=== PATIENT | male | born 1950 | race Caucasian/White ===

== ENCOUNTER 2020-06-27 01:21 | Inpatient (IN) | payer MEDICARE, SELFPAY ==
[2020-06-27] VITALS (8 sets, daily range): BP systolic 132–163; BP diastolic 57–85; PULSE 65–86; RESP 20–24; TEMP 36.6–37.7; O2SAT 95–99; BMI 21.5
--- NOTE | ~2020-06-27 | CT_ITS ---
EXAMINATION: CT abdomen pelvis w con DATE: 06/27/2020 02:57 INDICATION: Abdominal pain. TECHNIQUE: Computed tomography (CT) of the abdomen and pelvis was performed with 100 mL Omnipaque 350 intravenous contrast. Automated exposure control and iterative reconstruction technique were employe d. The dose-length product was 191.75 mGy-cm. COMPARISON: None. FINDINGS: The visualized portions of the lung bases demonstrate dependent airspace opacities and grou ndglass opacities in right lower lobe, likely atelectasis. No pleural effusion. The heart size is nor mal. No pericardial effusion. There are coronary artery calcifications. The liver, gallbladder, splee n, pancreas, adrenal glands, and right kidney are normal. There is a 1.7 cm cyst in left kidney. Ther e are no dilated loops of bowel. There is a large volume of stool in the colon. The appendix measures 9 mm in diameter. There are no pathologically enlarged lymph nodes. There is no free intraperitoneal fluid. There is lumbar levoscoliosis and severe spondylosis. IMPRESSION: 1. Appendiceal diameter of 9 mm, but no inflammatory fat stranding or leukocytosis to suggest appendi citis. Reviewed, dictated and finalized at location A. IMPRESSION: 1. Appendiceal diameter of 9 mm, but no inflammatory fat stranding or leukocyto sis to suggest appendicitis.
--- NOTE | 2020-06-27 01:37 | ECG_ITS ---
Measurements Intervals [place] Rate: 72 P: 71 MN: 176 QRS: 64 QRSD: 89 T: 65 QT: 407 QTc: 448 Interpretive Statements SINUS RHYTHM POSSIBLE LEFT ATRIAL ENLARGEMENT POSSIBLE LEFT VENTRICULAR HYPERTROPHY BORDERLINE ST-T WAVE ABNORMALITY- INFERIOR LEADS BASELINE ARTIFACT- I, II, III, AVR, AVL, AVF, V1-V6 BORDERLINE ECG Electronically Signed On 06-27-2020 8:04:02 CDT by Clem Gillette D.O.
[2020-06-27] MEDS: SODIUM CHLORIDE 0.9% IV 1,000 ML 999 ML IV CONT (01:57)
[2020-06-27] MEDS: KETOROLAC 30 MG/ML VIAL (*BKC) IV PUSH (01:57)
[2020-06-27] MEDS: ONDANSETRON INJ 4 MG/2 ML VIAL IV PUSH ×4 (01:57→18:27)
[2020-06-27 02:12] LABS: Basophils Absolute Auto 0.06 K/mm3 (0.00-0.10); Basophils Percent Auto 0.7 % (0.0-1.0); Eosinophils Absolute Auto 0.18 K/mm3 (0.02-0.50); Hemoglobin 11.7 g/dL (12.4-15.3); Immature Granulocyte Absolute 0.04 K/mm3 (0.00-0.00); Immature Granulocyte Percent A 0.4 % (0.0-0.0); Lymphocytes Absolute Auto 1.44 K/mm3 (1.10-4.50); Mean Corpuscular HGB Conc 32.5 g/dL (32.0-36.0); Mean Corpuscular Hemoglobin 27.8 pg (27.0-31.0); Mean Corpuscular Volume 85.5 fL (78.0-102.0); Mean Platelet Volume 9.6 fl (8.7-11.0); Monocytes Absolute Auto 0.41 K/mm3 (0.10-0.90); Monocytes Percent Auto 4.5 % (2.0-11.0); Neutrophils Absolute Auto 6.9 K/mm3 (1.7-7.2); Neutrophils Percent Auto 76.4 % (50.0-70.0); Platelet Count Result 269 K/mm3 (150-420); Red Blood Count 4.21 M/mm3 (4.70-6.10); Red Cell Distribution Width 12.8 % (11.6-14.4)
[2020-06-27 02:33] LABS: Alanine Aminotransferase 23 U/L (16-63); Albumin Level 2.9 g/dL (3.4-5.0); Alkaline Phosphatase 85 U/L (46-116); Anion Gap 8 mmol/L (8-16); Aspartate Amino Transferase 20 U/L (15-37); Bilirubin,Total 0.3 mg/dL (0.00-1.00); Blood Urea Nitrogen 11 mg/dL (7-18); Calcium 7.8 mg/dL (8.5-10.1); Carbon Dioxide 28 mmol/L (21-32); Chloride 104 mmol/L (98-108); Estimated CRCL calculation 64 ml/min; Estimated Glomerular Filt Rate > 60; Glucose 126 mg/dL (70-99); Lipase 76 U/L (73-393); Osmolality Calculated 291 mOsm/kg (285-295); Potassium 3.4 mmol/L (3.5-5.1); Sodium 140 mmol/L (136-145); Total Protein 6.1 g/dL (6.4-8.2); Troponin I 6.7 ng/L (0.00-60.4)
[2020-06-27 02:37] LABS: Bilirubin Urine Negative (Negative); Blood Urine Negative (Negative); Color Urine Yellow (Yellow); Glucose Urine UA Negative (Negative); Ketones Urine Negative (Negative); Leukocyte Esterase Ur Negative LEU/UL (Negative); Nitrate Urine Negative (Negative); Protein Urine Negative (Negative); pH Urine 8.5 (5.0-8.0)
[2020-06-27 02:39] LABS: INR 1.1; Partial Thromboplastin Time 29.1 SEC (23.90-30.70); Prothrombin Time 11.4 Seconds (9.50-12.10)
[2020-06-27 02:44] LABS: Add Urine Microscopic? YES; Appearance Urine Cloudy (Clear)
[2020-06-27 02:45] LABS: Amphetamine Screen Urine Positive (Negative); Barbiturate Screen Urine Negative (Negative); Benzodiazepines Screen Urine Negative (Negative); Cannabinoid Screen Urine Negative (Negative); Cocaine Screen Urine Negative (Negative); Methadone Screen Urine Negative (Negative); Opiate Screen Urine Negative (Negative); Phencyclidine Screen Urine Negative (Negative)
[2020-06-27 02:47] LABS: Amorphous Sediment Urine Heavy
--- NOTE | 2020-06-27 03:59 | PC.NURSE ---
pt awake requesting a drink , explained need for npo until ct scan report obtained.
--- NOTE | 2020-06-27 04:05 | ED.NAVMDI ---
HPI - Nausea/Vomiting/Diarrhea General Chief complaint: Nausea/Vomiting/Diarrhea Stated complaint: STOMACH PAIN Source: patient Mode of arrival: ambulatory Limitations: no limitations History of Present Illness HPI Narrative: this is a 69-year-old gentleman that presents with nausea few episodes of vomiting has been having some intermittent lower abdominal pain but has chronic back pain that his main complaint is the chronic lower back pain. Patient is has a known history of methamphetamine and and narcotic abuser is chronic constipation. Currently there is no fever chills no shortness of breath no diarrhea. MD elicited complaint: nausea, vomiting and abdominal pain Onset (ago): day(s) Description of vomiting: watery Associated abdominal pain: Yes Location of pain: periumbilical Related Data Allergies Allergy/AdvReac Type Severity Reaction Status Date / Time No Known Allergies Allergy Verified 06/27/20 01:29 Review of Systems Review of Systems: All systems reviewed & are unremarkable except as noted in HPI and below PMFSH Past Medical History Medical History Drug abuse Exam Const: General: no acute distress and alert Orientation/consciousness: patient oriented x3 HENMT: Head: normal to inspection Eyes: Pupils: Equal, round and reactive pupils present Neck: Neck: normal visual inspection, no lymphadenopathy and no meningeal signs Chest: Chest palpation & inspection: normal inspection of the chest Resp: Effort & Inspection: normal respiratory effort Auscultation: clear to auscultation bilaterally Cardio: Rate: regular rate Rhythm: regular rhythm GI: GI Palp: Yes Soft to palpation and Yes Tenderness to palpation present (GI) Back/Spine/Pelvis: Back: no CVA tenderness Other: L4 paravertebral spinal tenderness with palpation Skin: General skin exam: normal color Rashes: no rashes Neuro: General: patient oriented x3, moves all extremities and no meningeal signs Extrem: General: normal to inspection and no pedal edema Psych: Appearance: disheveled Mental Status: mental status grossly normal Course Course Emergency Course: reassessment of patient continues to have lower back pain abdominal pain has subsided there is currently no nausea or vomiting, has been complaining of back pain will give him IV Tylenol and another dose of Zofran and advised to send medicine to his pharmacy for constipation and to follow-up with his primary care physician. Vital Signs Vital signs: Vital Signs Temperature 36.6 C 06/27/20 01:21 Pulse Rate 83 06/27/20 01:21 Respiratory Rate 20 06/27/20 01:21 Blood Pressure 132/85 06/27/20 01:21 Pulse Oximetry 99 06/27/20 01:21 Temperature 36.6 C 06/27/20 03:14 Pulse Rate 86 06/27/20 03:14 Respiratory Rate 20 06/27/20 03:14 Blood Pressure 137/67 06/27/20 03:14 Pulse Oximetry 98 06/27/20 03:14 MDM - Nausea/Vomiting/Diarrhea Lab Data Result diagrams: 06/27/20 02:09 06/27/20 02:09 Labs: Lab Results 06/27/20 06/27/20 06/27/20 Range/Units 01:37 01:45 02:09 WBC 9.0 (4.8-10.8) K/mm3 RBC 4.21 L (4.70-6.10) M/mm3 Hgb 11.7 L (12.4-15.3) g/dL Hct 36.0 L (37.0-46.0) % MCV 85.5 (78.0-102.0) fL MCH 27.8 (27.0-31.0) pg MCHC 32.5 (32.0-36.0) g/dL RDW 12.8 (11.6-14.4) % Plt Count 269 (150-420) K/mm3 MPV 9.6 (8.7-11.0) fl Immature Gran % (Auto) 0.4 H (0.0-0.0) % Neut % (Auto) 76.4 H (50.0-70.0) % Lymph % (Auto) 16.0 L (18.0-42.0) % [place] % (Auto) 4.5 (2.0-11.0) % Eos % (Auto) 2.0 (1.0-6.0) % Baso % (Auto) 0.7 (0.0-1.0) % Lymph # (Auto) 1.44 (1.10-4.50) K/mm3 [place] # (Auto) 0.41 (0.10-0.90) K/mm3 Eos # (Auto) 0.18 (0.02-0.50) K/mm3 Baso # (Auto) 0.06 (0.00-0.10) K/mm3 Abs Immat Gran (auto) 0.04 H (0.00-0.00) K/mm3 Absolute Neuts (auto) 6.9 (1.7-7.2) K/mm3
--- NOTE | 2020-06-27 04:21 | PC.NURSE ---
pt back to sleep, sitting up in cot.
--- NOTE | 2020-06-27 05:11 | PC.NURSE ---
pt able to stand to get up to commode to urinate. continues to complaint about chronic back pain.
--- NOTE | 2020-06-27 05:20 | PC.NURSE ---
multiple attempts to call arleen Hernandez, messages left, no response. Pt left undisturbed to sleep. warm blankets reapplied
--- NOTE | 2020-06-27 06:11 | PC.NURSE ---
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
--- NOTE | 2020-06-27 06:19 | PC.NURSE ---
ice chips given per pt request. warm blankets reapplied. awaiting son arrival.
--- NOTE | 2020-06-27 06:28 | PC.NURSE ---
pt wretching with dry heeves after ice chips, dr fuller notified. called and notified. unable to contact son.
[2020-06-27] MEDS: MORPHINE SULFATE (*CRX) 2 MG/ML INJ IV PUSH ×2 (07:20→13:09)
[2020-06-27] MEDS: LACTATED RINGERS 1,000 ML 100 ML IV CONT ×2 (07:20→16:51)
--- NOTE | 2020-06-27 07:23 | PC.NURSE ---
update to charge nurse, Madhavi PEREZ. pt continues wretching and spitting phlegm. Report to ANA Nur
--- NOTE | 2020-06-27 07:51 | PC.NURSE ---
PT CARE IS ASSUMED AT THIS TIME. PT CURRENTLY NOT HAVING EMESIS. PT REFUSES SUBOXONE FILM, STATES IT WILL KILL HIM BECAUSE HE DID FENTANYL TODAY.
[2020-06-27] MEDS: KCL 40 MEQ/0.9% SOD CHL 1,000 ML 250 ML IV CONT ×2 (08:05→12:05)
[2020-06-27] MEDS: PROMETHAZINE HCL 25 MG/ML AMPUL IM (08:09)
--- NOTE | 2020-06-27 08:40 | ADMGEN ---
This patient, Leandro Benson, was admitted to 2nd Floor Room 206-1. Patient oriented to hospital policies and general routines including ID bracelet, bed and alarms, visiting hours, pain management, procedures, bathroom and other care routines, personal items, smoking policy, room service/diet, and visiting hours. Patient encouraged to report perceived risks to care and to ask questions if they do not understand what they are told or what they should do.
[2020-06-27] MEDS: METOCLOPRAMIDE HCL INJ 10 MG/2 ML VIAL 5 MG IV PUSH ×3 (09:40→18:14)
[2020-06-27] MEDS: PROCHLORPERAZINE EDISYLATE 10 MG/2 ML VIAL IV PUSH (10:44)
[2020-06-27] MEDS: chlordiazePOXIDE (*CRX) 25 MG CAPSULE 50 MG PO ×2 (12:14→18:13)
--- NOTE | 2020-06-27 15:12 | PM.IMHP ---
H&P: HPI History of Present Illness Date/Time: 06/27/20 15:13 this is a 69-year-old gentleman who presented to our urgent care with abdominal pain and uncontrollable nausea and vomiting. Patient has a past medical history of substance abuse. Patient did test positive for amphetamines and admits that he also does fentanyl. WBCs 9.0, hemoglobin 11.7, hematocrit 36.0, platelets 269, sodium 140, potassium 3.4, creatinine 0.86, BUN 11, glucose 126. Patient has been referred to [facility]. He will be admitted for withdrawal symptoms and treatment. Patient complains of nausea and vomiting and abdominal pain. The patient denies SOB, CP, palpitation, extremity numbness, lightheadedness, dizziness, chills, or fever. Chief Complaint: Withdrawal symptoms Review of Systems Review of Systems: Narrative: A 14 organ system Review of Systems was performed and pertinent positives included in the HPI, otherwise remaining ROS is negative. [facility] Past Medical History Medical History Drug abuse Social History Social History Smoking packs per day: 1 Smoking cigarettes per day: 20.0 Years smoked: 25 Smoking pack-years: 25.00 Smoking status: Current every day smoker Tobacco type: cigarettes Alcohol intake: never Substance use type: methamphetamine Last use: 06/26/2020 Gender identity (if verbalized by the patient): Male Spiritual care concerns: No Meds Home Medications and Allergies Home Medications Medication Instructions Recorded Confirmed Type docusate sodium [Colace] 100 mg PO BID #10 cap 06/27/20 Rx magnesium citrate 150 ml PO ONCE #296 ml 06/27/20 Rx naproxen 500 mg PO BID PRN #10 tablet 06/27/20 Rx ondansetron HCl [Zofran] 4 mg PO Q6H PRN #10 tablet 06/27/20 Rx Allergies Allergy/AdvReac Type Severity Reaction Status Date / Time No Known Allergies Allergy Verified 06/27/20 01:29 Vital Signs Vital Signs - 24 hr 06/27/20 01:21 06/27/20 03:14 06/27/20 04:28 Temperature 98 F 98 F 98 F Pulse Rate 83 86 86 Respiratory Rate 20 20 20 Blood Pressure 132/85 137/67 145/74 H Pulse Oximetry 99 98 98 06/27/20 07:27 06/27/20 08:45 06/27/20 12:00 Temperature 98 F 98.9 F 99.9 F H Pulse Rate 65 82 77 Respiratory Rate 20 20 20 Blood Pressure 163/67 H 152/81 H 143/84 H Pulse Oximetry 95 96 98 Exam Narrative: Exam Narrative: GENERAL: This is a well-nourished, well-developed patient, in no apparent distress. HEAD: normocephalic, atraumatic. EYES: PERRL. Sclera clear/white. Vision is grossly intact. EARS: External ears normal, auditory canals clear and without drainage, TMs normal without perforation. Hearing grossly intact. NOSE: External nose normal with no obvious nasal discharge, nares without redness, no rhinorrhea. THROAT: Mucous membranes moist, posterior pharynx clear. NECK: Neck supple, non-tender without lymphadenopathy, masses or thyromegaly. CARDIOVASCULAR: Regular rate and rhythm without murmurs, gallops, or rubs. RESPIRATORY: Clear to auscultation. Breath sounds equal bilaterally. No wheezes, rales, or rhonchi. GASTROINTESTINAL: Abdomen soft, non-tender, nondistended. Bowel sounds are active. No hepato-splenomegaly, or palpable masses. No guarding. SKIN: warm, intact with no suspicious lesions or rash, good texture and turgor. NEURO: awake, alert, and oriented to person, place and time. There were no obvious focal neurologic abnormalities. Steady gait EXTREMITIES: Normal range of motion. No edema. No calf tenderness. Negative Homans sign bilaterally. BACK: Nontender without deformity or crepitance. No flank tenderness. H&P: Results Labs Labs: Short CBC 06/27/20 Range/Units 02:09 WBC 9.0 (4.8-10.8) K/mm3 Hgb 11.7 L (12.4-15.3) g/dL Hct 36.0 L (37.0-46.0) % Plt Count 269 (150-420) K/mm3 [facility] 06/27/20 02:09 Sodium 140 Potassium
--- NOTE | 2020-06-27 17:00 | PC.NURSE ---
Pt. continues to have small bouts of emesis, Pt. will awaken to name and try to perform simple tasks, but very sluggish. Pt. under close monitoring, VSS at this time. Pt. has emesis bag in place and advised to use if needed.
[2020-06-27 18:25] LABS: Glucose Point of Care 126 mg/dl (65-105)
[2020-06-27] MEDS: DOCUSATE SODIUM 100 MG CAPSULE PO (20:53)
[2020-06-28] VITALS: BP 142/75; PULSE 79; RESP 20; TEMP 36.8; O2SAT 98
[2020-06-28] MEDS: METOCLOPRAMIDE HCL INJ 10 MG/2 ML VIAL 5 MG IV PUSH ×5 (00:49→23:54)
[2020-06-28] MEDS: chlordiazePOXIDE (*CRX) 25 MG CAPSULE 50 MG PO ×2 (00:49→06:08)
--- NOTE | 2020-06-28 00:49 | PC.NURSE ---
ANA Major at bedside to administer IV push Reglan.
[2020-06-28 01:03] LABS: Glucose Point of Care 122 mg/dl (65-105)
[2020-06-28] MEDS: LACTATED RINGERS 1,000 ML 100 ML IV CONT ×3 (01:46→22:35)
[2020-06-28 04:00] VITALS: BP 167/67; PULSE 66; RESP 24; TEMP 37.2; O2SAT 94
[2020-06-28 05:55] LABS: Basophils Absolute Auto 0.02 K/mm3 (0.00-0.10); Basophils Percent Auto 0.1 % (0.0-1.0); Eosinophils Absolute Auto 0.01 K/mm3 (0.02-0.50); Eosinophils Percent Auto 0.1 % (1.0-6.0); Hematocrit 38.4 % (37.0-46.0); Hemoglobin 12.9 g/dL (12.4-15.3); Immature Granulocyte Absolute 0.06 K/mm3 (0.00-0.00); Immature Granulocyte Percent A 0.4 % (0.0-0.0); Lymphocytes Absolute Auto 1.52 K/mm3 (1.10-4.50); Lymphocytes Percent Auto 9.8 % (18.0-42.0); Mean Corpuscular HGB Conc 33.6 g/dL (32.0-36.0); Mean Corpuscular Hemoglobin 27.6 pg (27.0-31.0); Mean Corpuscular Volume 82.1 fL (78.0-102.0); Mean Platelet Volume 10.1 fl (8.7-11.0); Monocytes Absolute Auto 0.93 K/mm3 (0.10-0.90); Neutrophils Percent Auto 83.6 % (50.0-70.0); Platelet Count Result 349 K/mm3 (150-420); Red Blood Count 4.68 M/mm3 (4.70-6.10); Red Cell Distribution Width 12.9 % (11.6-14.4); White Blood Count 15.5 K/mm3 (4.8-10.8)
[2020-06-28 06:05] LABS: Alanine Aminotransferase 30 U/L (16-63); Albumin Level 3.1 g/dL (3.4-5.0); Alkaline Phosphatase 88 U/L (46-116); Anion Gap 10 mmol/L (8-16); Aspartate Amino Transferase 28 U/L (15-37); Bilirubin,Total 0.6 mg/dL (0.00-1.00); Blood Urea Nitrogen 15 mg/dL (7-18); Calcium 8.2 mg/dL (8.5-10.1); Carbon Dioxide 24 mmol/L (21-32); Chloride 100 mmol/L (98-108); Estimated CRCL calculation 60 ml/min; Estimated Glomerular Filt Rate > 60; Glucose 126 mg/dL (70-99); Osmolality Calculated 280 mOsm/kg (285-295); Potassium 3.3 mmol/L (3.5-5.1); Sodium 134 mmol/L (136-145); Total Protein 6.6 g/dL (6.4-8.2)
[2020-06-28 06:21] LABS: Magnesium 1.9 mg/dL (1.8-2.4)
[2020-06-28 06:32] LABS: Glucose Point of Care 119 mg/dl (65-105)
--- NOTE | 2020-06-28 06:32 | PC.NURSE ---
ANA Lira at bedside to administer IV push Reglan
[2020-06-28 08:00] VITALS: BP 172/87; PULSE 73; RESP 22; TEMP 37.6; O2SAT 96
--- NOTE | 2020-06-28 10:45 | WPDPN ---
Progress Note: A&P Assessment and Plan (1) Constipation: Qualifiers: Constipation type: drug induced constipation Qualified Code(s): K59.03 - Drug induced constipation Code(s): K59.00 - Constipation, unspecified Status: Acute Assessment and Plan: Continue stool softeners Will give laxative later patient may develop diarrhea due to withdrawal symptoms Imaging indicates constipation (2) Back pain at L4-L5 level: Code(s): M54.5 - Low back pain Status: Acute Assessment and Plan: Will avoid narcotics Treat with Tylenol (3) Drug abuse: Code(s): F19.10 - Other psychoactive substance abuse, uncomplicated Status: Acute Assessment and Plan: Refer to the [facility] Continue buprenorphine, Librium, Ativan, Robaxin, Reglan, Zofran and Compazine (4) Kidney cysts: Code(s): N28.1 - Cyst of kidney, acquired Status: Acute Assessment and Plan: CT of the abdomen pelvis indicates 1.7 cm cyst to the left kidney Patient will need to follow-up with his primary care physician (5) Abnormal CT of the abdomen: Code(s): R93.5 - Abnormal findings on diagnostic imaging of other abdominal regions, including retroperitoneum Status: Acute Assessment and Plan: Appendiceal diameter of 9 mm, but no inflammatory fat stranding or leukocytosis to suggest appendicitis. patient WBC increased and contniue to have abd tenderness MRI pending Exam Narrative: Exam Narrative: GENERAL: This is a well-nourished, well-developed patient, in no apparent distress. HEAD: normocephalic, atraumatic. EYES: PERRL. Sclera clear/white. Vision is grossly intact. EARS: External ears normal, auditory canals clear and without drainage, TMs normal without perforation. Hearing grossly intact. NOSE: External nose normal with no obvious nasal discharge, nares without redness, no rhinorrhea. THROAT: Mucous membranes moist, posterior pharynx clear. NECK: Neck supple, non-tender without lymphadenopathy, masses or thyromegaly. CARDIOVASCULAR: Regular rate and rhythm without murmurs, gallops, or rubs. RESPIRATORY: Clear to auscultation. Breath sounds equal bilaterally. No wheezes, rales, or rhonchi. GASTROINTESTINAL: Abdomen soft, tender as evidenced patient grimacing with palpation especially to the right side of the abdomen, nondistended. Bowel sounds are active. No hepato-splenomegaly, or palpable masses. No guarding. SKIN: warm, intact with no suspicious lesions or rash, good texture and turgor. NEURO: Sedated EXTREMITIES: Normal range of motion. No edema. No calf tenderness. Negative Homans sign bilaterally. BACK: Nontender without deformity or crepitance. No flank tenderness. Objective Data Vital Signs Vital Signs: Vital Signs - 24 hr 06/27/20 12:00 06/27/20 15:36 06/27/20 20:00 Temperature 99.9 F H 99.8 F H 98.8 F Pulse Rate 77 83 76 Respiratory Rate 20 20 24 H Blood Pressure 143/84 H 139/57 L 136/68 Pulse Oximetry 98 97 97 06/28/20 00:00 06/28/20 04:00 Temperature 98.3 F 98.9 F Pulse Rate 79 66 Respiratory Rate 20 24 H Blood Pressure 142/75 H 167/67 H Pulse Oximetry 98 94 Intake/Output Intake/Output: Intake & Output 06/25/20 06/26/20 06/27/20 06/28/20 23:59 23:59 23:59 23:59 Intake Total 3461.667 891.667 Output Total 725 120 Balance 2736.667 771.667 Meds/Results Medications: Active Medications Generic Name Dose Route Start Last Admin Trade Name Freq PRN Reason Stop Dose Admin Buprenorphine/Naloxone 0.5 each 06/27/20 21:00 06/28/20 08:26 Buprenorphine Hcl/Naloxone Hcl (*Crx) 4 Mg/1 Mg Sl Film SUBLINGUAL 0.5 each Q12HR HAILEY Administration Chlordiazepoxide HCl 50 mg 06/28/20 09:17 Chlordiazepoxide (*Crx) 25 Mg Capsule PO Q6HR PRN Alcohol Withdrawal Dicyclomine HCl 20 mg 06/27/20 08:37 Dicyclomine Hcl 10 Mg Capsule PO Q6H PRN Abdominal discomfort Docusate Sodium 100
[2020-06-28 12:00] VITALS: BP 171/92; PULSE 74; RESP 24; TEMP 37.3; O2SAT 96
[2020-06-28 14:19] LABS: Glucose Point of Care 117 mg/dl (65-105)
--- NOTE | 2020-06-28 14:24 | PM.EVENT ---
Event Note Event Note Event Note: according to patient and guest he is allergic to Brimonidine it causes burning and redness to his eye. The medication has been dc'ed and he is not displaying redness or burning currently. nursing will call his pharm for clarification.
[2020-06-28 16:00] VITALS: BP 155/84; PULSE 81; RESP 24; TEMP 37.7; O2SAT 97
[2020-06-28 18:07] LABS: Appearance Urine Sl Cloudy (Clear); Bilirubin Urine Negative (Negative); Color Urine Yellow (Yellow); Glucose Urine UA Negative (Negative); Ketones Urine 2+ (Negative); Leukocyte Esterase Ur Trace LEU/UL (Negative); Nitrate Urine Negative (Negative); Protein Urine Negative (Negative); Urobilinogen Urine 0.2 mg/dL (0.2-1.0)
[2020-06-28 18:16] LABS: Glucose Point of Care 93 mg/dl (65-105)
[2020-06-28 18:17] LABS: Add Urine Microscopic? YES; Amorphous Sediment Urine Moderate; Bacteria Urine 1+ /hpf; Blood Urine Trace (Negative)
[2020-06-28 20:00] VITALS: BP 159/76; PULSE 79; RESP 24; TEMP 36.9; O2SAT 93
[2020-06-28] MEDS: DOCUSATE SODIUM 100 MG CAPSULE PO (20:08)
[2020-06-29] VITALS: BP 159/82; PULSE 81; RESP 24; TEMP 36.7; O2SAT 94
--- NOTE | 2020-06-29 | PC.NURSE ---
ANA Lira at bedside to administer IV push Reglan.
[2020-06-29 03:23] LABS: Glucose Point of Care 108 mg/dl (65-105)
[2020-06-29 04:00] VITALS: BP 157/75; PULSE 73; RESP 20; TEMP 36.4; O2SAT 91
[2020-06-29] MEDS: METOCLOPRAMIDE HCL INJ 10 MG/2 ML VIAL 5 MG IV PUSH ×3 (05:54→17:28)
--- NOTE | 2020-06-29 05:55 | PC.NURSE ---
ANA Lira at bedside to administer IV push Reglan
[2020-06-29 05:57] LABS: Glucose Point of Care 103 mg/dl (65-105)
[2020-06-29 06:17] LABS: Hematocrit 42.3 % (37.0-46.0); Hemoglobin 14.4 g/dL (12.4-15.3); Mean Corpuscular Hemoglobin 27.8 pg (27.0-31.0); Mean Corpuscular Volume 81.7 fL (78.0-102.0); Mean Platelet Volume 9.9 fl (8.7-11.0); Platelet Count Result 386 K/mm3 (150-420); Red Blood Count 5.18 M/mm3 (4.70-6.10); Red Cell Distribution Width 12.5 % (11.6-14.4)
[2020-06-29 06:21] LABS: White Blood Count 21.1 K/mm3 (4.8-10.8)
[2020-06-29 06:35] LABS: Alanine Aminotransferase 28 U/L (16-63); Alkaline Phosphatase 87 U/L (46-116); Anion Gap 9 mmol/L (8-16); Aspartate Amino Transferase 20 U/L (15-37); Bilirubin,Total 0.7 mg/dL (0.00-1.00); Blood Urea Nitrogen 14 mg/dL (7-18); Calcium 8.2 mg/dL (8.5-10.1); Carbon Dioxide 27 mmol/L (21-32); Chloride 95 mmol/L (98-108); Estimated CRCL calculation 67 ml/min; Estimated Glomerular Filt Rate > 60; Glucose 119 mg/dL (70-99); Osmolality Calculated 273 mOsm/kg (285-295); Potassium 3.2 mmol/L (3.5-5.1); Sodium 131 mmol/L (136-145); Total Protein 6.4 g/dL (6.4-8.2)
--- NOTE | 2020-06-29 06:35 | PC.NURSE ---
Dr. Kurtz notified of pt's WBC of 21.1. No new orders at this time.
[2020-06-29 06:39] LABS: Lactic Acid Reflex 1.4 mmol/L (0.4-2.0)
[2020-06-29 06:49] LABS: Band Neutrophils Percent 0 % (0-6); Basophils Percent Manual 0 % (0-1); Eosinophils Percent Manual 0 % (1-6); Lymphocytes Absolute Manual 1.89 K/mm3 (1.1-4.5); Lymphocytes Percent Manual 9 % (18-44); Monocytes Absolute Manual 1.26 K/mm3 (0.1-0.90); Monocytes Percent Manual 6 % (3-9); Neutrophils Absolute Manual 17.93 K/mm3 (1.3-6.7); Neutrophils Percent Manual 85 % (46-73); Platelet Estimate Adequate (Adequate); Total Cells Counted 100
[2020-06-29 07:40] VITALS: BP 167/87; PULSE 84; RESP 20; TEMP 37.1; O2SAT 94
[2020-06-29] MEDS: LACTATED RINGERS 1,000 ML 100 ML IV CONT (08:28)
[2020-06-29] MEDS: SODIUM CHLORIDE 0.9% IV 1,000 ML 100 ML IV CONT ×2 (09:47→20:20)
[2020-06-29] MEDS: KCL 20 MEQ/SW 100 ML 100 ML 50 MEQ IVPB ×2 (10:24→12:24)
--- NOTE | 2020-06-29 10:45 | WPDPN ---
Progress Note: A&P Assessment and Plan (1) Constipation: Qualifiers: Constipation type: drug induced constipation Qualified Code(s): K59.03 - Drug induced constipation <Porsche OakleyMAL - Last Filed: 06/29/20 10:49> Code(s): K59.00 - Constipation, unspecified <Porsche OakleyUSHA-C - Last Filed: 06/29/20 10:49> Status: Acute <Porsche OakleySHYANNC - Last Filed: 06/29/20 10:49> Assessment and Plan: Continue stool softeners Will give laxative later patient may develop diarrhea due to withdrawal symptoms Imaging indicates constipation <Porsche TothAlea AdinMAL - Last Filed: 06/29/20 10:49> (2) Back pain at L4-L5 level: Code(s): M54.5 - Low back pain <Porsche TothMAL Julien - Last Filed: 06/29/20 10:49> Status: Acute <Porsche OakleyMAL - Last Filed: 06/29/20 10:49> Assessment and Plan: Will avoid narcotics Treat with Tylenol <Porsche TothUSHA Julien-C - Last Filed: 06/29/20 10:49> (3) Drug abuse: Code(s): F19.10 - Other psychoactive substance abuse, uncomplicated <Porsche TothAlea AdinMAL - Last Filed: 06/29/20 10:49> Status: Acute <Porsche TothAlea AdinMAL - Last Filed: 06/29/20 10:49> Assessment and Plan: [facility] Continue buprenorphine, Librium, Ativan, Robaxin, Reglan, Zofran and Compazine <Porsche TothUSHA Julien-Sherry - Last Filed: 06/29/20 10:49> (4) Kidney cysts: Code(s): N28.1 - Cyst of kidney, acquired <Porsche TothUSHA Julien-C - Last Filed: 06/29/20 10:49> Status: Acute <Velasquezryan JaneyMAL Julien - Last Filed: 06/29/20 10:49> Assessment and Plan: CT of the abdomen pelvis indicates 1.7 cm cyst to the left kidney Patient will need to follow-up with his primary care physician <Porsche TothUSHA JulienJeanSherry - Last Filed: 06/29/20 10:49> (5) Abnormal CT of the abdomen: Code(s): R93.5 - Abnormal findings on diagnostic imaging of other abdominal regions, including retroperitoneum <USHA PelaezMedina Pena Last Filed: 06/29/20 10:49> Status: Acute <Porsche TothAlea Oakley MAL - Last Filed: 06/29/20 10:49> Assessment and Plan: Appendiceal diameter of 9 mm, but no inflammatory fat stranding or leukocytosis to suggest appendicitis. patient WBC increased and contniue to have abd tenderness MRI ordered for Tuesday if need <Velasquezryan USHA HughesMedina - Last Filed: 06/29/20 10:49> (6) UTI (urinary tract infection): Code(s): N39.0 - Urinary tract infection, site not specified <VelasquezUSHA MauricioMedina - Last Filed: 06/29/20 10:49> Status: Acute <Porsche Joseph Adin MAL Pena Last Filed: 06/29/20 10:49> Assessment and Plan: UA with WBCs leukocytes and bacteria Patient will receive supplements if needed WBCs 21.1 Start Rocephin UA culture pending <VelasquezOFELIA MauricioBeto Last Filed: 06/29/20 10:49> Review of Systems Review of Systems: ROS unobtainable: Yes unobtainable due to medical condition <OFELIA PelaezBeto - Last Filed: 06/29/20 10:49> Exam Narrative: Exam Narrative: GENERAL: Patient is sedated in no apparent distress. HEAD: normocephalic, atraumatic. EYES: PERRL. Sclera clear/white. Vision is grossly intact. EARS: External ears normal, auditory canals clear and without drainage, TMs normal without perforation. Hearing grossly intact. NOSE: External nose normal with no obvious nasal discharge, nares without redness, no rhinorrhea. THROAT: Mucous membranes moist, posterior pharynx clear. NECK: Neck supple, non-tender without lymphadenopathy, masses or thyromegaly. CARDIOVASCULAR: Regular rate and rhythm without murmurs, gallops, or rubs. RESPIRATORY: Clear to auscultation. Breath sounds equal bilaterally. No wheezes, rales, or rhonchi. GASTROINTESTINAL: Abdomen soft, tender as evidenced patient grimacing with palpation especially to the r
--- NOTE | 2020-06-29 10:45 | P.PN_ITS ---
Progress Note: A&P Assessment and Plan (1) Constipation: Qualifiers: Constipation type: drug induced constipation Qualified Code(s): K59.03 - Drug induced constipation <Porsche TothMAL Julien - Last File d: 06/29/20 10:49> Code(s): K59.00 - Constipation, unspecified <Porsche OakleyMAL - Last Filed: 06/29/20 10:49> Status: Acute <Porsche OakleyMAL - Last Filed: 06/29/20 10:49> Assessment and Plan: * Continue stool softeners * Will give laxative later patient may develop diarrhea due to withdrawal symptoms * Imaging indicates constipation <Porsche JaneyMAL Julien - Last Filed: 06/29/20 10:49> (2) Back pain at L4-L5 level: Code(s): M54.5 - Low back pain <Porsche JaneyMAL Julien - Last Filed: 06/29/20 10:49> Status: Acute <Porsche TothAlea AdinMAL - Last Filed: 06/29/20 10:49> Assessment and Plan: * Will avoid narcotics * Treat with Tylenol <MAL Pelaez - Last Filed: 06/29/20 10:49> (3) Drug abuse: Code(s): F19.10 - Other psychoactive substance abuse, uncomplicated <Porsche TothMAL Julien - Last Filed: 06/29/20 10:49> Status: Acute <Velasquezryan JaneyMAL Julien - Last Filed: 06/29/20 10:49> Assessment and Plan: * [facility] to [facility] * Continue buprenorphine, Librium, Ativan, Robaxin, Reglan, Zofran and Compazine <MAL Pelaez - Last Filed: 06/29/20 10:49> (4) Kidney cysts: Code(s): N28.1 - Cyst of kidney, acquired <Porsche JaneyAML Julien - Last Filed: 06/29/20 10:49> Status: Acute <Porsche JaneyMAL Julien - Last Filed: 06/29/20 10:49> Assessment and Plan: * CT of the abdomen pelvis indicates 1.7 cm cyst to the left kidney * Patient will need to follow-up with his primary care physician <MAL Pelaez - Last Filed: 06/29/20 10:49> (5) Abnormal CT of the abdomen: Code(s): R93.5 - Abnormal findings on diagnostic imaging of other abdominal regions, including retroperitoneum <Porsche TothAlea Oakley MAL Pena Last Filed: 06/29/20 10:49> Status: Acute <Porsche Oakley MAL - Last Filed: 06/29/20 10:49> Assessment and Plan: * Appendiceal diameter of 9 mm, but no inflammatory fat stranding or leukocytosis to suggest appendicitis. * patient WBC increased and contniue to have abd tenderness * MRI ordered for Tuesday if need <Porshce TothAlea Oakley MAL - Last Filed: 06/29/20 10:49> (6) UTI (urinary tract infection): Code(s): N39.0 - Urinary tract infection, site not specified <Porsche Oakley MAL - Last Filed: 06/29/20 10:49> Status: Acute <Porsche Oakley MAL Pena Last Filed: 06/29/20 10:49> Assessment and Plan: * UA with WBCs leukocytes and bacteria * Patient will receive supplements if needed WBCs 21.1 * Start Rocephin * UA culture pending <Porsche Oakley MAL Pena Last Filed: 06/29/20 10:49> Review of Systems Review of Systems: ROS unobtainable: Yes unobtainable due to medical condition <Porsche Oakley MAL - Last Filed: 06/29/20 10:49> Exam Narrative: Exam Narrative: GENERAL: Patient is sedated in no apparent distress. HEAD: normocephalic, atraumatic. EYES: PERRL. Sclera clear/white. Vision is grossly intact. EARS: External ears normal, auditory canals clear and without drainage, TMs normal without perforation. Hearing grossly intact. NOSE: External nose normal with no obvious nasal discharge, nares without redness, no rhinorrhea. 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
[2020-06-29] MEDS: NICOTINE (*PBKC) 21 MG PATCH 1 PATCH TRANSDERM (11:42)
[2020-06-29] MEDS: ENOXAPARIN 40 MG/0.4 ML SYRINGE SUB-Q (11:44)
[2020-06-29 11:48] LABS: Glucose Point of Care 123 mg/dl (65-105)
[2020-06-29 12:00] VITALS: BP 146/74; PULSE 86; RESP 18; TEMP 37.2; O2SAT 93
[2020-06-29 16:00] VITALS: BP 158/86; PULSE 84; RESP 20; TEMP 37.3; O2SAT 94
[2020-06-29 19:20] LABS: Glucose Point of Care 129 mg/dl (65-105)
[2020-06-29 20:00] VITALS: BP 145/77; PULSE 77; RESP 24; TEMP 36.5; O2SAT 97
[2020-06-29] MEDS: DOCUSATE SODIUM 100 MG CAPSULE PO (20:47)
[2020-06-30] VITALS (7 sets, daily range): BP systolic 132–170; BP diastolic 60–84; PULSE 64–78; RESP 16–24; TEMP 36.4–37.5; O2SAT 92–99
--- NOTE | 2020-06-30 | PC.NURSE ---
ANA Hernandez at bedside to administer IV push David
[2020-06-30 00:59] LABS: Glucose Point of Care 94 mg/dl (65-105)
[2020-06-30] MEDS: METOCLOPRAMIDE HCL INJ 10 MG/2 ML VIAL 5 MG IV PUSH ×4 (01:04→17:15)
[2020-06-30 05:19] LABS: Hematocrit 39.3 % (37.0-46.0); Hemoglobin 13.3 g/dL (12.4-15.3); Mean Corpuscular HGB Conc 33.8 g/dL (32.0-36.0); Mean Corpuscular Hemoglobin 27.8 pg (27.0-31.0); Platelet Count Result 349 K/mm3 (150-420); Red Blood Count 4.79 M/mm3 (4.70-6.10); Red Cell Distribution Width 12.6 % (11.6-14.4)
[2020-06-30 05:33] LABS: Glucose Point of Care 119 mg/dl (65-105)
[2020-06-30 05:37] LABS: Alanine Aminotransferase 15 U/L (16-63); Albumin Level 2.6 g/dL (3.4-5.0); Alkaline Phosphatase 82 U/L (46-116); Anion Gap 6 mmol/L (8-16); Aspartate Amino Transferase 14 U/L (15-37); Bilirubin,Total 0.6 mg/dL (0.00-1.00); Blood Urea Nitrogen 12 mg/dL (7-18); Calcium 7.9 mg/dL (8.5-10.1); Carbon Dioxide 27 mmol/L (21-32); Chloride 99 mmol/L (98-108); Estimated CRCL calculation 63 ml/min; Estimated Glomerular Filt Rate > 60; Glucose 119 mg/dL (70-99); Magnesium 1.9 mg/dL (1.8-2.4); Osmolality Calculated 274 mOsm/kg (285-295); Potassium 3.3 mmol/L (3.5-5.1); Sodium 132 mmol/L (136-145); Total Protein 6.1 g/dL (6.4-8.2)
--- NOTE | 2020-06-30 06:00 | PC.NURSE ---
ANA Lira at bedside to administer IV push Reglan.
[2020-06-30] MEDS: SODIUM CHLORIDE 0.9% IV 1,000 ML 100 ML IV CONT ×2 (06:15→17:14)
[2020-06-30] MEDS: ENOXAPARIN 40 MG/0.4 ML SYRINGE SUB-Q (09:20)
[2020-06-30] MEDS: DOCUSATE SODIUM 100 MG CAPSULE PO ×2 (09:21→20:41)
[2020-06-30] MEDS: methocarbamoL 750 MG TABLET PO (09:21)
[2020-06-30] MEDS: NICOTINE (*PBKC) 21 MG PATCH 1 PATCH TRANSDERM (11:26)
[2020-06-30 13:10] LABS: Glucose Point of Care 115 mg/dl (65-105)
--- NOTE | 2020-06-30 15:15 | WPDPN ---
Progress Note: A&P Assessment and Plan (1) Constipation: Qualifiers: Constipation type: drug induced constipation Qualified Code(s): K59.03 - Drug induced constipation Code(s): K59.00 - Constipation, unspecified Status: Acute Assessment and Plan: Continue stool softeners Will give laxative later patient may develop diarrhea due to withdrawal symptoms Imaging indicates constipation (2) Back pain at L4-L5 level: Code(s): M54.5 - Low back pain Status: Acute Assessment and Plan: Will avoid narcotics Treat with Tylenol (3) Drug abuse: Code(s): F19.10 - Other psychoactive substance abuse, uncomplicated Status: Acute Assessment and Plan: Refer to the [facility] Continue buprenorphine, Librium, Ativan, Robaxin, Reglan, Zofran and Compazine (4) Kidney cysts: Code(s): N28.1 - Cyst of kidney, acquired Status: Acute Assessment and Plan: CT of the abdomen pelvis indicates 1.7 cm cyst to the left kidney Patient will need to follow-up with his primary care physician (5) Abnormal CT of the abdomen: Code(s): R93.5 - Abnormal findings on diagnostic imaging of other abdominal regions, including retroperitoneum Status: Acute Assessment and Plan: Appendiceal diameter of 9 mm, but no inflammatory fat stranding or leukocytosis to suggest appendicitis. patient WBC increased and contniue to have abd tenderness (6) UTI (urinary tract infection): Code(s): N39.0 - Urinary tract infection, site not specified Status: Acute Assessment and Plan: UA with WBCs leukocytes and bacteria Patient will receive supplements if needed WBCs 21.1 Start Rocephin WBCs 9.0>15.5>21.1>17.0 Review of Systems Review of Systems: Narrative: A 14 organ system Review of Systems was performed and pertinent positives included in the HPI, otherwise remaining ROS is negative. Exam Narrative: Exam Narrative: GENERAL: Patient is sedated in no apparent distress. HEAD: normocephalic, atraumatic. EYES: PERRL. Sclera clear/white. Vision is grossly intact. EARS: External ears normal, auditory canals clear and without drainage, TMs normal without perforation. Hearing grossly intact. NOSE: External nose normal with no obvious nasal discharge, nares without redness, no rhinorrhea. THROAT: Mucous membranes moist, posterior pharynx clear. NECK: Neck supple, non-tender without lymphadenopathy, masses or thyromegaly. CARDIOVASCULAR: Regular rate and rhythm without murmurs, gallops, or rubs. RESPIRATORY: Clear to auscultation. Breath sounds equal bilaterally. No wheezes, rales, or rhonchi. GASTROINTESTINAL: Abdomen soft, tender as evidenced patient grimacing with palpation especially to the right side of the abdomen, nondistended. Bowel sounds are active. No hepato-splenomegaly, or palpable masses. No guarding. SKIN: warm, intact with no suspicious lesions or rash, good texture and turgor. NEURO: Sedated EXTREMITIES: Normal range of motion. No edema. No calf tenderness. Negative Homans sign bilaterally. BACK: Nontender without deformity or crepitance. No flank tenderness. Objective Data Vital Signs Vital Signs: Vital Signs - 24 hr 06/29/20 16:00 06/29/20 20:00 06/30/20 00:00 Temperature 99.1 F 97.7 F 98.6 F Pulse Rate 84 77 68 Respiratory Rate 20 24 H 20 Blood Pressure 158/86 H 145/77 H 157/80 H Pulse Oximetry 94 97 99 06/30/20 04:00 06/30/20 08:00 06/30/20 12:00 Temperature 97.6 F 97.6 F 99.2 F Pulse Rate 66 70 78 Respiratory Rate 24 H 18 16 Blood Pressure 156/67 H 140/60 132/82 Pulse Oximetry 97 97 98 Intake/Output Intake/Output: Intake & Output 06/27/20 06/28/20 06/29/20 06/30/20 23:59 23:59 23:59 23:59 Intake Total 3461.667 2891.667 3490 1712.667 Output Total 781 654 3525 575 Balance 2736.667 2371.667 1315 1137.667 Meds/Results Medications: Active Medications Generic Name Dose Route Start Last
[2020-06-30 18:41] LABS: Glucose Point of Care 110 mg/dl (65-105)
[2020-06-30] MEDS: PROCHLORPERAZINE EDISYLATE 10 MG/2 ML VIAL IV PUSH (18:45)
[2020-06-30] MEDS: DICYCLOMINE HCL 10 MG CAPSULE 20 MG PO (21:20)
[2020-06-30 23:20] LABS: Glucose Point of Care 107 mg/dl (65-105)
[2020-07-01] MEDS: METOCLOPRAMIDE HCL INJ 10 MG/2 ML VIAL 5 MG IV PUSH ×3 (00:46→13:03)
[2020-07-01] MEDS: SODIUM CHLORIDE 0.9% IV 1,000 ML 100 ML IV CONT (03:10)
[2020-07-01 05:50] LABS: Hematocrit 38.1 % (37.0-46.0); Hemoglobin 12.7 g/dL (12.4-15.3); Mean Corpuscular HGB Conc 33.3 g/dL (32.0-36.0); Mean Corpuscular Hemoglobin 27.8 pg (27.0-31.0); Mean Corpuscular Volume 83.4 fL (78.0-102.0); Mean Platelet Volume 10.5 fl (8.7-11.0); Platelet Count Result 331 K/mm3 (150-420); Red Blood Count 4.57 M/mm3 (4.70-6.10); Red Cell Distribution Width 12.5 % (11.6-14.4); White Blood Count 14.5 K/mm3 (4.8-10.8)
[2020-07-01 06:01] LABS: Glucose Point of Care 115 mg/dl (65-105)
[2020-07-01 06:05] LABS: Alanine Aminotransferase 18 U/L (16-63); Albumin Level 2.6 g/dL (3.4-5.0); Alkaline Phosphatase 77 U/L (46-116); Anion Gap 7 mmol/L (8-16); Aspartate Amino Transferase 14 U/L (15-37); Bilirubin,Total 0.4 mg/dL (0.00-1.00); Blood Urea Nitrogen 9 mg/dL (7-18); Calcium 7.9 mg/dL (8.5-10.1); Carbon Dioxide 26 mmol/L (21-32); Chloride 100 mmol/L (98-108); Estimated CRCL calculation 65 ml/min; Estimated Glomerular Filt Rate > 60; Glucose 98 mg/dL (70-99); Osmolality Calculated 274 mOsm/kg (285-295); Potassium 3.2 mmol/L (3.5-5.1); Sodium 133 mmol/L (136-145)
[2020-07-01 06:06] VITALS: BP 129/73; PULSE 71; RESP 20; TEMP 36.1; O2SAT 96
[2020-07-01 08:00] VITALS: BP 167/86; PULSE 66; RESP 16; TEMP 37.2; O2SAT 96
[2020-07-01] MEDS: NICOTINE (*PBKC) 21 MG PATCH 1 PATCH TRANSDERM (08:43)
[2020-07-01] MEDS: ENOXAPARIN 40 MG/0.4 ML SYRINGE SUB-Q (08:45)
[2020-07-01] MEDS: DOCUSATE SODIUM 100 MG CAPSULE PO (08:47)
--- NOTE | 2020-07-01 14:33 | PM.DS ---
DS: Admitting Diagnosis Admitting Diagnosis Admitting Diagnosis: Nausea and Vomiting, Constipation DS: Discharge Diagnosis Discharge Diagnosis (1) Constipation: Qualifiers: Constipation type: drug induced constipation Qualified Code(s): K59.03 - Drug induced constipation Code(s): K59.00 - Constipation, unspecified Status: Acute Assessment and Plan: Continue stool softeners Will give laxative later patient may develop diarrhea due to withdrawal symptoms Imaging indicates constipation 07/01/2020 Pt has had a BM during his stay (2) Back pain at L4-L5 level: Code(s): M54.5 - Low back pain Status: Acute Assessment and Plan: Will avoid narcotics Treat with Tylenol 07/01/2020 Tylenol seemed to work for this Pt he only had minimal pain this AM (3) Drug abuse: Code(s): F19.10 - Other psychoactive substance abuse, uncomplicated Status: Acute Assessment and Plan: [facility] Continue buprenorphine, Librium, Ativan, Robaxin, Reglan, Zofran and Compazine 07/01/2020 Pt was referred to addition services (4) Kidney cysts: Code(s): N28.1 - Cyst of kidney, acquired Status: Acute Assessment and Plan: CT of the abdomen pelvis indicates 1.7 cm cyst to the left kidney Patient will need to follow-up with his primary care physician 07/01/2020 No urinary issues, f/u with PCP and right of way supervisor per PCP (5) Abnormal CT of the abdomen: Code(s): R93.5 - Abnormal findings on diagnostic imaging of other abdominal regions, including retroperitoneum Status: Acute Assessment and Plan: Appendiceal diameter of 9 mm, but no inflammatory fat stranding or leukocytosis to suggest appendicitis. patient WBC increased and contniue to have abd tenderness 07/01/2020 WBC trending down now 14.5, afebrile, no chills, Pt was vomiting and dry heaving previously which is likely cause for his abdominal pain (6) UTI (urinary tract infection): Code(s): N39.0 - Urinary tract infection, site not specified Status: Acute Assessment and Plan: UA with WBCs leukocytes and bacteria Patient will receive supplements if needed WBCs 21.1 Start Rocephin WBCs 9.0>15.5>21.1>17.0 07/01/2020 WBC this AM 14.5 down trending, in collaboration with Dr. Echavarria will treat for prostatitis with Bactrim for 1 month. DS: Summary Hospital Course Hospital Course: Pt has not had N/V and was able to have BMs, no withdrawal symptoms reported Time Spent with Patient Time attestation: Total time spent providing and/or coordinating discharge services:< 30 Minutes Exam Const: General: cooperative, comfortable, no acute distress, alert, awake and Physically active Nutritional Appearance: average body habitus HENMT: Head: normal to inspection and normocephalic Ears: hearing grossly normal bilaterally Eyes: General: appearance normal, both eyes and all related structures Neck: Neck: normal visual inspection and no JVD Resp: Effort & Inspection: normal respiratory effort Auscultation: clear to auscultation bilaterally Cardio: Jugular venous distension: no JVD Rate: regular rate Heart sounds: S1 normal heart sound present and S2 normal heart sound present GI: GI Palp: Yes Soft to palpation and Yes Tenderness to palpation present (GI) (just under ribs ) Auscultation: normal bowel sounds Skin: General skin exam: pallor Neuro: General: oriented to person, oriented to place and oriented to time Cranial nerves: Yes CN's II-XII intact bilaterally (grossly intact) Cognition (Neuro): normal cognition Speech: normal speech Extrem: General: no pedal edema Psych: Mental Status: mental status grossly normal Affect: normal affect Attitude: cooperative DS: Data Data Completed and Pending Labs on day of discharge: Labs from last 24 hours 07/01/20 07/01/20 07/01/20 05:57 05:11 05:11 WBC 14.5 H RBC 4.57 L Hgb 12.7 Hct 38.1 MC
--- NOTE | 2020-07-01 15:51 | PC.NURSE ---
Patient transported off of floor via wheelchair to personal vehicle. Patient discharged to home. Discharge instructions explained. Patient verbalized understanding. Personal belongings sent with patient.
--- NOTE | 2020-07-02 12:51 | PC.NURSE ---
Discharge call back completed, spoke with , states having some abdominal pain but minimal, states he wants chili but isn't sure he should have that yet, asked about medications, and reports no new meds she knew of, but having pain when pees, I informed that patient did have a UTI diagnosis and should have a script for an antibiotic, while on the phone I reviewed with hospitalist and will send script to ramesh corona for her to picker feeder for patient. No other questions offerred and no concerns regarding care while in hospital.
== END 2020-07-01 15:50 | disposition home or self-care (01) | DRG 690 ==
LOC: CHSED 07:19 → CHS2ND 07:24
PROVIDERS: Emergency Medicine; Nurse Practitioner; Admitting Provider Emergency Medicine; Emergency Provider Emergency Medicine; Visit Provider Emergency Medicine
DX: N39.0 Urinary tract infection, site not specified (principal); F19.139 Other psychoactive substance abuse with withdrawal, unspecified; K59.03 Drug induced constipation; M54.5 Low back pain; N28.1 Cyst of kidney, acquired; F17.200 Nicotine dependence, unspecified, uncomplicated
CPT/HCPCS: 36415; 74177; 80053; 80307; 81001; 82948; 83605; 83690; 83735; 84484; 85025; 85027; 85610; 85730; 87077; 87086; 87088; 93005; 96361; 96365; 96366; 96367; 96372; 96375; 96376; 97161; 97165; 97530; 99285; A9270; G0378; J0131; J0696; J0780; J1650; J1885; J2270; J2405; J2550; J2765; J3480; J7030; J7120; Q9967

== ENCOUNTER 2020-10-13 05:37 | Inpatient (IN) | payer MEDICARE, SELFPAY ==
[2020-10-13] VITALS (12 sets, daily range): BP systolic 123–169; BP diastolic 57–90; PULSE 62–86; RESP 18–24; TEMP 36.6–37.9; O2SAT 94–98; BMI 13.2
--- NOTE | ~2020-10-13 | XR_ITS ---
XR abdomen/kub 1V 10/14/2020 17:53 Indication: Ileus. Abdomen pain. Covid Procedure: KUB Comparison: No prior studies for comparison. Findings: Elevated right diaphragm. NG tube in the stomach. Nonobstructive bowel gas pattern. Moderat e lumbar spondylosis with levoscoliosis. No radiopaque renal stones. No acute osseous abnormality. 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 Impression: 1: Nonobstructive bowel gas pattern. Reviewed, dictated and finalized at location A. Impression: 1: Nonobstructive bowel gas pattern.
--- NOTE | ~2020-10-13 | XR_ITS ---
EXAMINATION: XR chest 1V portable DATE: 10/13/2020 08:08 INDICATION: COVID positive presenting with cough and vomiting. TECHNIQUE: frontal view of the chest was obtained. COMPARISON: Chest radiograph dated 03/27/2018 FINDINGS: Velocity right hemithorax with elevation of the right hemidiaphragm and rightward shift of the heart and mediastinum. Right basilar opacities most likely atelectasis although differential includes pneum onia. Left lung remains clear. No pulmonary edema pleural effusion or pneumothorax. Mild cardiomegaly . There is excreted contrast in the bilateral renal collecting systems from prior contrast enhanced C T of the abdomen and pelvis. Moderate upper lumbar levoscoliosis with severe thoracolumbar spondylosi s. IMPRESSION: 1. Volume loss the right hemithorax with elevation of the right hemidiaphragm and rightward shift of the heart and mediastinum. 2. Right basilar opacities and favor atelectasis over pneumonia. 3. Mild cardiomegaly. Reviewed, dictated and finalized at location A. IMPRESSION: 1. Volume loss the right hemithorax with elevation of the right hemidiaphragm a nd rightward shift of the heart and mediastinum. 2. Right basilar opacities and favor atelectasis over pneumonia. 3. Mild cardiomegaly.
--- NOTE | ~2020-10-13 | CT_ITS ---
EXAMINATION: CT abdomen pelvis w con DATE: 10/13/2020 08:08 INDICATION: COVID positive with nausea, vomiting and abdominal pain TECHNIQUE: Computed tomography (CT) of the abdomen and pelvis was performed with 100 mL Omnipaque-350 intravenous contrast. Automated exposure control and iterative reconstruction technique were employe d. The dose-length product was 329.59 mGy-cm. COMPARISON: None FINDINGS: Elevation of the right hemidiaphragm. Compressive atelectasis along the inferior right middle lobe. T here are peripheral groundglass and reticular opacities in the right middle and lower lobes also most likely atelectasis although differential includes pneumonia or asymmetric mild pulmonary edema. Bord nicholas heart size. Atherosclerotic coronary artery calcification with possible stenting along the rig ht coronary artery. No pericardial or pleural effusion. Liver, gallbladder, spleen, pancreas and bila teral kidneys are normal. Unchanged mild thickening of the bilateral adrenal glands. There are severa l discontinuous mildly dilated loops of small bowel with intervening relatively decompressed segments and without a discrete transition point to suggest obstruction and this could be related to either i leus or enteritis. Small amount of stool scattered throughout the colon. The appendix is not visualiz ed. No pericecal inflammatory change to suggest acute appendicitis. Distended bladder is otherwise un remarkable. No free intraperitoneal gas or fluid. No pathologically enlarged abdominal or pelvic lymp hadenopathy. There is calcified atherosclerosis of the aorta and many of the other arteries. Moderate lumbar levoscoliosis with severe thoracolumbar spondylosis. IMPRESSION: 1. A few discontinuous mildly dilated gas and fluid-filled loops of small bowel without a discrete tr ansition point to suggest obstruction and is more likely related to either an ileus or enteritis. 2. Bibasilar and peripheral predominant opacities in the right middle and lower lobes consistent with corresponding volume loss and elevation the right hemidiaphragm although could not absolutely exclud e superimposed pneumonia or mild asymmetric pulmonary edema. Reviewed, dictated and finalized at location A. IMPRESSION: 1. A few discontinuous mildly dilated gas and fluid-filled loops of small bowel without a discrete transition point to suggest obstruction and is more likely related to either an ileus or enteritis. 2. Bibasilar and peripheral predominant opacities in the right middle and lower lobes consistent with corresponding volume loss and elevation the right hemidi aphragm although could not absolutely exclude superimposed pneumonia or mild as ymmetric pulmonary edema.
--- NOTE | 2020-10-13 05:39 | ECG_ITS ---
Measurements Intervals [place] Rate: 59 P: 52 MA: 166 QRS: 54 QRSD: 84 T: 32 QT: 427 QTc: 425 Interpretive Statements SINUS BRADYCARDIA BASELINE ARTIFACT- V1-V6 BORDERLINE ECG Electronically Signed On 10-14-2020 7:12:51 CDT by Clem Gillette D.O.
--- NOTE | 2020-10-13 06:03 | ED.NAVMDI ---
HPI - Nausea/Vomiting/Diarrhea General Source: patient and family Mode of arrival: wheelchair Limitations: altered mental status and intoxication History of Present Illness HPI Narrative: 70-year-old man with a history of methamphetamine and opiate drug abuse brought to the emergency department by family slumped over in a wheelchair and complaining of vomiting. Patient is a poor historian and only states that his abdomen hurts. Family states that he has been vomiting. Family reports no cough or cold symptoms, fever, diarrhea, or injuries. MD elicited complaint: nausea, vomiting and abdominal pain Onset (ago): hour(s) (12?) Description of vomiting: food contents Associated nausea: Yes Associated abdominal pain: Yes Pain consistency: constant Severity: moderate Relieving factors: none Related Data Allergies Allergy/AdvReac Type Severity Reaction Status Date / Time No Known Allergies Allergy Verified 06/27/20 01:29 Review of Systems Review of Systems: ROS unobtainable: Yes unobtainable due to mental status PMFSH Past Medical History Medical History Drug abuse Social History Social History Smoking packs per day: 55 Smoking cigarettes per day: 1,100.0 Years smoked: 25 Smoking pack-years: 1375.00 Smoking status: Heavy tobacco smoker Tobacco type: cigarettes Second hand tobacco smoke exposure: Yes Alcohol intake: never Substance use: current Substance use type: methamphetamine Last use: 06/26/2020 Gender identity (if verbalized by the patient): Male Spiritual care concerns: No Exam Const: Other: Moderate acute distress, disheveled, slumped over in chair and in bed. HENMT: Head: normal to inspection Ears: external ears normal Mouth: Yes moist mucous membranes Throat: posterior oropharynx normal Other: Nasal drainage Eyes: Cornea: corneas normal Pupils: Equal, round and reactive pupils present EOM: EOMs intact bilaterally Resp: Effort & Inspection: normal respiratory effort and not labored Auscultation: clear to auscultation bilaterally, no rales, no rhonchi, no wheezes and diminished lung sounds on the right in the lower lung wilson Cardio: Rate: regular rate Rhythm: regular rhythm Heart sounds: no murmurs GI: GI Palp: Yes Soft to palpation, Yes Tenderness to palpation present (GI), No Guarding due to palpation present (GI), No Rigid due to palpation and No Palpable mass present Skin: General skin exam: normal color, no jaundice and no pallor Rashes: no rashes Neuro: General: patient oriented x3, moves all extremities, no focal motor deficits and CN's II-XI intact bilaterally Speech: normal speech Gait exam (Neuro): Normal gait present Extrem: General: normal to inspection and no clubbing, cyanosis or edema Psych: Appearance: grossly normal and well kempt Mental Status: mental status grossly normal Affect: normal affect Attitude: cooperative Thought content: Yes Normal thought content present Course Vital Signs Vital signs: Vital Signs Temperature 36.6 C 10/13/20 05:40 Pulse Rate 65 10/13/20 05:40 Respiratory Rate 24 H 10/13/20 05:40 Blood Pressure 169/71 H 10/13/20 05:40 Pulse Oximetry 97 10/13/20 05:40 Temperature 37.1 C 10/15/20 12:00 Pulse Rate 78 10/15/20 12:00 Respiratory Rate 16 10/15/20 12:00 Blood Pressure 140/50 L 10/15/20 12:00 Pulse Oximetry 95 10/15/20 12:00 MDM - Nausea/Vomiting/Diarrhea Differential Diagnosis Differential diagnosis: Likely gastroenteritis, drug-induced nausea and vomiting and dehydration Lab Data Result diagrams: 10/15/20 05:20 10/15/20 05:20 Labs: Lab Results 10/13/20 10/13/20 10/13/20 Range/Units 06:18 06:18 06:18 WBC 6.7 (4.8-10.8) K/mm3 RBC 4.83 (4.70-6.10) M/mm3 Hgb 13.7 (12.4-15.3) g/dL Hct 40.6 (37.0-46.0) % MCV 84.1
[2020-10-13] MEDS: ONDANSETRON INJ 4 MG/2 ML VIAL IV PUSH ×2 (06:15→09:27)
[2020-10-13] MEDS: SODIUM CHLORIDE 0.9% IV 1,000 ML 999 ML IV CONT (06:20)
[2020-10-13 06:21] LABS: Basophils Absolute Auto 0.01 K/mm3 (0.00-0.10); Basophils Percent Auto 0.1 % (0.0-1.0); Hematocrit 40.6 % (37.0-46.0); Hemoglobin 13.7 g/dL (12.4-15.3); Immature Granulocyte Absolute 0.02 K/mm3 (0.00-0.00); Immature Granulocyte Percent A 0.3 % (0.0-0.0); Lymphocytes Absolute Auto 0.89 K/mm3 (1.10-4.50); Lymphocytes Percent Auto 13.2 % (18.0-42.0); Mean Corpuscular HGB Conc 33.7 g/dL (32.0-36.0); Mean Corpuscular Hemoglobin 28.4 pg (27.0-31.0); Mean Corpuscular Volume 84.1 fL (78.0-102.0); Mean Platelet Volume 10.6 fl (8.7-11.0); Monocytes Absolute Auto 0.39 K/mm3 (0.10-0.90); Monocytes Percent Auto 5.8 % (2.0-11.0); Neutrophils Absolute Auto 5.4 K/mm3 (1.7-7.2); Neutrophils Percent Auto 80.6 % (50.0-70.0); Platelet Count Result 207 K/mm3 (150-420); Red Blood Count 4.83 M/mm3 (4.70-6.10); Red Cell Distribution Width 12.2 % (11.6-14.4); White Blood Count 6.7 K/mm3 (4.8-10.8)
[2020-10-13 06:31] LABS: Partial Thromboplastin Time 33.7 SEC (23.90-30.70)
[2020-10-13 06:35] LABS: SARS-CoV-2 Ag Positive (Negative)
[2020-10-13 06:38] LABS: Alanine Aminotransferase 22 U/L (16-63); Albumin Level 3.1 g/dL (3.4-5.0); Alkaline Phosphatase 96 U/L (46-116); Anion Gap 10 mmol/L (8-16); Aspartate Amino Transferase 32 U/L (15-37); Bilirubin,Total 0.4 mg/dL (0.00-1.00); Blood Urea Nitrogen 12 mg/dL (7-18); CRP 7.4 mg/dL (0.0-0.9); Calcium 8.5 mg/dL (8.5-10.1); Carbon Dioxide 28 mmol/L (21-32); Chloride 97 mmol/L (98-108); Estimated CRCL calculation 48 ml/min; Estimated Glomerular Filt Rate > 60; Glucose 137 mg/dL (70-99); Lactic Acid Reflex 1.7 mmol/L (0.4-2.0); Lipase 143 U/L (73-393); Osmolality Calculated 281 mOsm/kg (285-295); Potassium 3.8 mmol/L (3.5-5.1); Sodium 135 mmol/L (136-145); Total Protein 7.3 g/dL (6.4-8.2); Troponin I 7.3 ng/L (0.00-60.4)
[2020-10-13] MEDS: PROMETHAZINE HCL 25 MG/ML AMPUL IM (06:50)
[2020-10-13] MEDS: SODIUM CHLORIDE 0.9% IV 1,000 ML 200 ML IV CONT (07:30)
--- NOTE | 2020-10-13 08:15 | PC.NURSE ---
URINE SAMPLE SENT TO LAB.
[2020-10-13 08:21] LABS: Add Urine Microscopic? YES; Appearance Urine Clear (Clear); Bilirubin Urine Negative (Negative); Blood Urine Trace-Intact (Negative); Color Urine Yellow (Yellow); Glucose Urine UA Negative (Negative); Ketones Urine 2+ (Negative); Leukocyte Esterase Ur Negative LEU/UL (Negative); Nitrate Urine Negative (Negative); Protein Urine Negative (Negative); pH Urine 7.5 (5.0-8.0)
[2020-10-13 08:26] LABS: Squamous Epithelial Cell Urine Rare /hpf (Few); WBC Urine None seen /hpf (0-3)
[2020-10-13 08:27] LABS: Amphetamine Screen Urine Positive (Negative); Bacteria Urine Trace /hpf; Barbiturate Screen Urine Negative (Negative); Benzodiazepines Screen Urine Negative (Negative); Cannabinoid Screen Urine Negative (Negative); Cocaine Screen Urine Negative (Negative); Methadone Screen Urine Negative (Negative); Opiate Screen Urine Negative (Negative); Phencyclidine Screen Urine Negative (Negative)
[2020-10-13 09:29] LABS: Base Excess ABG 0.1 mmol/L (0-2); Oxygen Content ABG 17.5 %vol (16.0-22.0); Oxygen Saturation ABG 92.7 % (95-97); Oxyhemoglobin 92.1 % (94-100); PCO2 ABG 28.3 mmHg (35-45); Total Hemoglobin 13.5 g/dL (12.0-18.0); pH ABG 7.51 (7.35-7.45)
[2020-10-13 09:30] LABS: Device ROOM AIR; Modified Allen's Test Pass; Site Drawn RIGHT RADIAL
[2020-10-13] MEDS: DEXAMETHASONE SOD PHOS INJ 4 MG/ML VIAL 8 MG (12:00)
[2020-10-13] MEDS: SODIUM CHLORIDE 0.9% IV 1,000 ML 100 ML IV CONT ×2 (12:13→21:59)
[2020-10-13] MEDS: ENOXAPARIN 40 MG/0.4 ML SYRINGE 30 MG SUB-Q (12:13)
[2020-10-13] MEDS: DEXAMETHASONE SOD PHOS INJ 4 MG/ML VIAL 6 MG IV PUSH (12:13)
[2020-10-13] MEDS: REMDESIVIR 200 MG/NS 250 ML 200 MG/250 ML BAG 250 MG IVPB (12:16)
[2020-10-13] MEDS: NICOTINE (*PBKC) 21 MG PATCH 1 PATCH TRANSDERM (12:28)
[2020-10-13] MEDS: LORazepam INJ (*CRX) 2 MG/ML VIAL 0.5 MG IV PUSH ×2 (12:30→20:49)
--- NOTE | 2020-10-13 12:54 | PM.IMHP ---
H&P: HPI History of Present Illness Date/Time: 10/13/20 12:54 this is a 70-year-old male that presented to emergency department with complaints of abdominal pain and nausea vomiting. Patient has a past medical history of substance abuse. Patient is a poor historian all information obtained from medical records. Patient is lethargic but arousable. according to family members with the patient unsure of how long. Patient also tested positive for Covid, vital signs blood pressure 152/62, pulse ox 95% on room air, respiratory rate 18, pulse 86, temperature 99.4, WBC 6.7, hemoglobin 13.7, hematocrit 40.6, platelets 207, sodium 135, potassium 3.8, BUN 12, creatinine 0.88, glucose 137, lactic acid 1.7, liver function test within normal limit, CRP 1.4, urine positive for ketones, blood, urobilinogen RBCs, positive for amphetamines and positive for Covid CT of the abdomen indicates ileus or enteritis, ABG pH 7.51 CO2 20.3 O2 66, bicarb 22. Possible mild pulmonary edema EKG sinus rhythm with a heart rate of 72 Chief Complaint: abd pain n/v Review of Systems Review of Systems: ROS unobtainable: Yes unobtainable due to mental status PMFSH Past Medical History Medical History Drug abuse Social History Social History Smoking packs per day: 55 Smoking cigarettes per day: 1,100.0 Years smoked: 25 Smoking pack-years: 1375.00 Smoking status: Heavy tobacco smoker Tobacco type: cigarettes Second hand tobacco smoke exposure: Yes Alcohol intake: never Substance use: current Substance use type: methamphetamine Last use: 06/26/2020 Gender identity (if verbalized by the patient): Male Spiritual care concerns: No Meds Home Medications and Allergies Home Medications Medication Instructions Recorded Confirmed Type Unable to Obtain Home Medications 10/13/20 10/13/20 History Allergies Allergy/AdvReac Type Severity Reaction Status Date / Time No Known Allergies Allergy Verified 06/27/20 01:29 Vital Signs Vital Signs - 24 hr 10/13/20 05:40 10/13/20 05:45 10/13/20 06:57 Temperature 97.8 F Pulse Rate 65 62 79 Respiratory Rate 24 H 24 H Blood Pressure 169/71 H 151/78 H Pulse Oximetry 97 98 10/13/20 08:15 10/13/20 09:57 10/13/20 10:30 Temperature 99.8 F H Pulse Rate 69 72 80 Respiratory Rate 24 H 24 H 20 Blood Pressure 123/90 147/57 H 156/64 H Pulse Oximetry 96 95 10/13/20 12:00 Temperature 99.4 F Pulse Rate 86 Respiratory Rate 18 Blood Pressure 152/62 H Pulse Oximetry 95 Exam Narrative: GENERAL: Lethargic poorly groomed frail elderly man in no apparent distress. HEAD: normocephalic, atraumatic. EYES: PERRL. Sclera clear/white. Vision is grossly intact. EARS: External ears normal, auditory canals clear and without drainage, TMs normal without perforation. Hearing grossly intact. NOSE: External nose normal with no obvious nasal discharge, nares without redness, no rhinorrhea. THROAT: Mucous membranes moist, posterior pharynx clear. NECK: Neck supple, non-tender without lymphadenopathy, masses or thyromegaly. CARDIOVASCULAR: Regular rate and rhythm without murmurs, gallops, or rubs. RESPIRATORY: Clear to auscultation. Breath sounds equal bilaterally. No wheezes, rales, or rhonchi. GASTROINTESTINAL: Abdomen soft, non-tender, nondistended. Bowel sounds are hypoactive. SKIN: warm, intact with no suspicious lesions or rash, good texture and turgor. NEURO: awake, alert, and oriented to person, place and time. There were no obvious focal neurologic abnormalities. Steady gait EXTREMITIES: Normal range of motion. No edema. No calf tenderness. Negative Homans sign bilaterally. BACK: Nontender without deformity or crepitance. No flank tenderness. H&P: Results Labs Labs: Short CBC 10/13/20 Range/Units 06:18 WBC 6.7 (4.8-10.8) K/mm3 Hgb 13.7 (12.4-15.3) g/dL Hct
--- NOTE | 2020-10-13 14:10 | PC.NURSE ---
1025 here from er with dx of covid and ileus draws up in fetus position. will only mostly grunt at questions. pulled r hand iv out. has large emesis of brown stool approx into towel and 400ml into emesis bag. merchandise presentation associate applied. ng -tube inserted without trouble into l nare. immediate return of 300ml brown liquid at times will answer staff other times just grunt. denies any home meds. does smoke, no drink, and occasional meth use. he is a very skinny and unkempt gentleman. skin is dry and has like dry stool on bottom of feet. not letting staff touch. npo, covid, ng tube explained. call light in reach and bed alarms on. hob up. .
[2020-10-13 14:45] LABS: NT Pro B Type Natriuretic Pept 824 pg/mL (0-125)
[2020-10-13] MEDS: METOCLOPRAMIDE HCL INJ 10 MG/2 ML VIAL 5 MG IV PUSH (17:36)
--- NOTE | 2020-10-13 18:12 | PC.NURSE ---
pt refuses to respond, will only open eyes when asked questions, full bed change done and new gown applied, pt incontinent of urine and dark brown emesis, pt has brown emesis during bed change, refuses emesis bag, urinal at bedside within reach, bed alarm on, iv running
[2020-10-13] MEDS: PANTOPRAZOLE SODIUM IV 40 MG VIAL IV PUSH (20:49)
[2020-10-14] VITALS (9 sets, daily range): BP systolic 132–142; BP diastolic 63–80; PULSE 61–77; RESP 16–50; TEMP 37.3–37.7; O2SAT 91–96
[2020-10-14] MEDS: METOCLOPRAMIDE HCL INJ 10 MG/2 ML VIAL 5 MG IV PUSH ×4 (00:13→18:11)
[2020-10-14] MEDS: ONDANSETRON INJ 4 MG/2 ML VIAL IV PUSH (00:20)
--- NOTE | 2020-10-14 03:55 | PC.NURSE ---
N/G leaked on bed; patient did not follow commands or respond initially. Does not participate in care needs. Underwear soaked in stool and cut off and placed in trash. Negative stimuli provided to feet jovanna. and patient withdraws feet jovanna. Moves arms spontaneously and with encouragement will squeeze hands jovanna with weak grasp noted equal jovanna. Opens eyes upon command.
[2020-10-14 06:38] LABS: Alanine Aminotransferase 21 U/L (16-63); Albumin Level 2.8 g/dL (3.4-5.0); Alkaline Phosphatase 89 U/L (46-116); Anion Gap 14 mmol/L (8-16); Aspartate Amino Transferase 27 U/L (15-37); Bilirubin,Total 0.4 mg/dL (0.00-1.00); Blood Urea Nitrogen 12 mg/dL (7-18); Carbon Dioxide 23 mmol/L (21-32); Chloride 98 mmol/L (98-108); Estimated CRCL calculation 58 ml/min; Estimated Glomerular Filt Rate > 60; Glucose 86 mg/dL (70-99); Osmolality Calculated 278 mOsm/kg (285-295); Sodium 135 mmol/L (136-145)
[2020-10-14 06:42] LABS: CRP 4.6 mg/dL (0.0-0.9); Magnesium 1.7 mg/dL (1.8-2.4)
[2020-10-14 07:13] LABS: Basophils Absolute Auto 0.01 K/mm3 (0.00-0.10); Basophils Percent Auto 0.1 % (0.0-1.0); Hematocrit 44.2 % (37.0-46.0); Hemoglobin 14.5 g/dL (12.4-15.3); Immature Granulocyte Absolute 0.05 K/mm3 (0.00-0.00); Immature Granulocyte Percent A 0.5 % (0.0-0.0); Lymphocytes Absolute Auto 1.34 K/mm3 (1.10-4.50); Lymphocytes Percent Auto 12.1 % (18.0-42.0); Mean Corpuscular HGB Conc 32.8 g/dL (32.0-36.0); Mean Corpuscular Hemoglobin 28.3 pg (27.0-31.0); Mean Corpuscular Volume 86.2 fL (78.0-102.0); Mean Platelet Volume 10.3 fl (8.7-11.0); Monocytes Absolute Auto 0.91 K/mm3 (0.10-0.90); Monocytes Percent Auto 8.2 % (2.0-11.0); Neutrophils Absolute Auto 8.8 K/mm3 (1.7-7.2); Neutrophils Percent Auto 79.1 % (50.0-70.0); Platelet Count Result 239 K/mm3 (150-420); Red Blood Count 5.13 M/mm3 (4.70-6.10); Red Cell Distribution Width 12.1 % (11.6-14.4); White Blood Count 11.1 K/mm3 (4.8-10.8)
[2020-10-14] MEDS: ENOXAPARIN 40 MG/0.4 ML SYRINGE 30 MG SUB-Q (09:16)
[2020-10-14] MEDS: KCL 20 MEQ/SW 100 ML 100 ML 50 MEQ IVPB ×2 (09:16→11:40)
[2020-10-14] MEDS: NICOTINE (*PBKC) 21 MG PATCH 1 PATCH TRANSDERM (09:18)
[2020-10-14 09:19] LABS: INR 1.1; Prothrombin Time 12.1 Seconds (9.50-12.10)
[2020-10-14] MEDS: DEXAMETHASONE SOD PHOS INJ 4 MG/ML VIAL 6 MG IV PUSH (09:19)
[2020-10-14] MEDS: PANTOPRAZOLE SODIUM IV 40 MG VIAL IV PUSH ×2 (09:19→21:01)
--- NOTE | 2020-10-14 09:23 | P.PN_ITS ---
Progress Note: A&P Assessment and Plan (1) COVID-19: Code(s): U07.1 - COVID-19 <MAL Pelaez - Last Filed: 10/14/20 12:43> Status: Acute <MAL Pelaez - Last Filed: 10/14/20 12:43> Assessment and Plan: * Patient in no obvious distress * Patient states that he had one vaccination * Continue dexamethasone and remdesivir D2 * Blood gas respiratory alkalosis <MAL Pelaez - Last Filed: 10/14/20 12:43> (2) Pneumonia: Qualifiers: Laterality: right Lung location: lower lobe of lung Pneumonia type: due to unspecified organism Qualified Code(s): J18.9 - Pneumonia, unspecified organism <MAL Pelaez - Last Filed: 10/14/20 12:43> Code(s): J18.9 - Pneumonia, unspecified organism <MAL Pelaez - Last Filed: 10/14/20 12:43> Status: Acute <MAL Pelaez - Last Filed: 10/14/20 12:43> Assessment and Plan: * Chest x-ray pneumonia * CRP elevated * Lactic acid within normal limit * Continue azithromycin and Rocephin * WBCs 6.7>11.1 * Patient with low-grade fever <MAL Pelaez - Last Filed: 10/14/20 12:43> (3) Ileus: Code(s): K56.7 - Ileus, unspecified <MAL Pelaez - Last Filed: 10/14/20 12:43> Status: Acute <MAL Pelaez - Last Filed: 10/14/20 12:43> Assessment and Plan: * According to the CT ileus versus enteritis * Patient n.p.o. * NG tube to suction * continue Reglan * Continue Zofran * Will reevaluate in the a.m. <MAL Pelaez - Last Filed: 10/14/20 12:43> (4) Drug abuse: Code(s): F19.10 - Other psychoactive substance abuse, uncomplicated <MAL Pelaez - Last Filed: 10/14/20 12:43> Status: Acute <MAL Pelaez Last Filed: 10/14/20 12:43> Assessment and Plan: * Will educate on cessation when more alert * Given Ativan * Positive for amphetamine <MAL Pelaez - Last Filed: 10/14/20 12:4 3> (5) Electrolyte imbalance: Code(s): E87.8 - Other disorders of electrolyte and fluid balance, not elsewhere classified <MAL Pelaez - Last Filed: 10/14/20 12:43> Status: Acute <MAL Pelaez Last Filed: 10/14/20 12:43> Assessment and Plan: * Potassium 3.0 and magnesium 1.7 * Will replace with supplement <MAL Pelaez - Last Filed: 10/14/20 12:43> Subjective Date/time seen: 10/14/20 09:23 patient is more lethargic today than yesterday he is able to follow commands and open eyes when instructed to do so. He is still connected to a NG tube with intermittent suction. According to nursing staff he continues to have approximately 400 to 600 mg of secretion from his NG tube. He does not appear to be in any distress at this time. We will continue NG suction and repeat CT of the abdomen in the a.m. <MAL Pelaez - Last Filed: 10/14/20 12:43> Review of Systems Review of Systems: ROS unobtainable: Yes unobtainable due to mental status <MAL Pelaez - Last Filed: 10/14/20 12:43> Exam Narrative: GENERAL: Lethargic poorly groomed frail elderly man in no apparent distress. HEAD: normocephalic, atraumatic. EYES: PERRL. Sclera clear/white. Vision is grossly intact. EARS: External ears normal, auditory canals clear and without drainage, TMs normal without perforation. Hearing grossly intact. NOSE: External nose normal with no obvious nasal discharge, nares without redness, no
--- NOTE | 2020-10-14 09:23 | WPDPN ---
Progress Note: A&P Assessment and Plan (1) COVID-19: Code(s): U07.1 - COVID-19 <Porsche Joseph MAL Oakley - Last Filed: 10/14/20 12:43> Status: Acute <Porsche OakleyMAL - Last Filed: 10/14/20 12:43> Assessment and Plan: Patient in no obvious distress Patient states that he had one vaccination Continue dexamethasone and remdesivir D2 Blood gas respiratory alkalosis <Porsche TothAlea AdinMAL - Last Filed: 10/14/20 12:43> (2) Pneumonia: Qualifiers: Laterality: right Lung location: lower lobe of lung Pneumonia type: due to unspecified organism Qualified Code(s): J18.9 - Pneumonia, unspecified organism <Vleasquezryan JaneyMAL Julien - Last Filed: 10/14/20 12:43> Code(s): J18.9 - Pneumonia, unspecified organism <Porsche JaneyMAL Julien - Last Filed: 10/14/20 12:43> Status: Acute <Porsche OalkeyMAL - Last Filed: 10/14/20 12:43> Assessment and Plan: Chest x-ray pneumonia CRP elevated Lactic acid within normal limit Continue azithromycin and Rocephin WBCs 6.7>11.1 Patient with low-grade fever <Porsche JaneyMAL Julien - Last Filed: 10/14/20 12:43> (3) Ileus: Code(s): K56.7 - Ileus, unspecified <Porsche TothMAL Julien - Last Filed: 10/14/20 12:43> Status: Acute <Porsche TothMAL Julien - Last Filed: 10/14/20 12:43> Assessment and Plan: According to the CT ileus versus enteritis Patient n.p.o. NG tube to suction continue Reglan Continue Zofran Will reevaluate in the a.m. <MAL Pelaez - Last Filed: 10/14/20 12:43> (4) Drug abuse: Code(s): F19.10 - Other psychoactive substance abuse, uncomplicated <MAL Pelaez Last Filed: 10/14/20 12:43> Status: Acute <MAL Pelaez Last Filed: 10/14/20 12:43> Assessment and Plan: Will educate on cessation when more alert Given Ativan Positive for amphetamine <MAL Pelaez - Last Filed: 10/14/20 12:43> (5) Electrolyte imbalance: Code(s): E87.8 - Other disorders of electrolyte and fluid balance, not elsewhere classified <MAL Pelaez - Last Filed: 10/14/20 12:43> Status: Acute <MAL Pelaez Last Filed: 10/14/20 12:43> Assessment and Plan: Potassium 3.0 and magnesium 1.7 Will replace with supplement <MAL Pelaez - Last Filed: 10/14/20 12:43> Subjective Date/time seen: 10/14/20 09:23 patient is more lethargic today than yesterday he is able to follow commands and open eyes when instructed to do so. He is still connected to a NG tube with intermittent suction. According to nursing staff he continues to have approximately 400 to 600 mg of secretion from his NG tube. He does not appear to be in any distress at this time. We will continue NG suction and repeat CT of the abdomen in the a.m. <MAL Pelaez - Last Filed: 10/14/20 12:43> Review of Systems Review of Systems: ROS unobtainable: Yes unobtainable due to mental status <MAL Pelaez Last Filed: 10/14/20 12:43> Exam Narrative: GENERAL: Lethargic poorly groomed frail elderly man in no apparent distress. HEAD: normocephalic, atraumatic. EYES: PERRL. Sclera clear/white. Vision is grossly intact. EARS: External ears normal, auditory canals clear and without drainage, TMs normal without perforation. Hearing grossly intact. NOSE: External nose normal with no obvious nasal discharge, nares without redness, no rhinorrhea. THROAT: Mucous membranes moist, posterior pharynx clear. NECK: Neck supple, non-tender without lymphadenopathy, masses or thyromegaly. CARDIOVASCULAR: Regular rate and rhythm without murmurs, gallops, or rubs. RESPIRATORY: Clear to auscultation. Breath sounds equal bilaterally. No wheezes, rales, or rhonchi. GASTROINTESTINAL: Abdomen soft, non-tender, nondistended. Bowel sounds are hypoa
[2020-10-14 09:25] LABS: Lactic Acid Reflex 0.7 mmol/L (0.4-2.0)
[2020-10-14] MEDS: SODIUM CHLORIDE 0.9% IV 1,000 ML 100 ML IV CONT ×2 (09:40→21:37)
--- NOTE | 2020-10-14 13:40 | PC.NURSE ---
Azithromycin infusion complete, see MAR flowchart. Infusion took longer than normal due to patient bending arm and IV occluding. IV site flushed well.
[2020-10-14] MEDS: REMDESIVIR 100 MG/NS 250 ML 100 MG/250 ML BAG 250 MG IVPB (13:45)
[2020-10-14] MEDS: MAGNESIUM SULF 2 GM/WATER 50ML 2 GM/50 ML BAG IVPB (13:56)
--- NOTE | 2020-10-14 15:30 | PC.NURSE ---
Remdesivir done infusing. Infusion took longer than ordered due to IV site in AC, Patient having trouble keeping arm straight. Patient does not want IV site moved.
[2020-10-15] VITALS: BP 151/74; PULSE 55; PULSE 68; RESP 16; TEMP 37.4; O2SAT 94
[2020-10-15] MEDS: METOCLOPRAMIDE HCL INJ 10 MG/2 ML VIAL 5 MG IV PUSH ×3 (00:39→13:52)
[2020-10-15] MEDS: LORazepam INJ (*CRX) 2 MG/ML VIAL 0.5 MG IV PUSH (02:23)
[2020-10-15] MEDS: MORPHINE SULFATE (*CRX) 2 MG/ML INJ IV PUSH (02:24)
[2020-10-15 04:00] VITALS: BP 134/70; PULSE 67; PULSE 74; RESP 18; TEMP 37.3; O2SAT 94
[2020-10-15 05:27] LABS: Hematocrit 45.6 % (37.0-46.0); Hemoglobin 15.3 g/dL (12.4-15.3); Mean Corpuscular HGB Conc 33.6 g/dL (32.0-36.0); Mean Corpuscular Hemoglobin 27.7 pg (27.0-31.0); Mean Corpuscular Volume 82.5 fL (78.0-102.0); Mean Platelet Volume 10.2 fl (8.7-11.0); Platelet Count Result 292 K/mm3 (150-420); Red Blood Count 5.53 M/mm3 (4.70-6.10); White Blood Count 12.4 K/mm3 (4.8-10.8)
[2020-10-15 05:50] LABS: Alanine Aminotransferase 21 U/L (16-63); Albumin Level 3.1 g/dL (3.4-5.0); Alkaline Phosphatase 88 U/L (46-116); Anion Gap 12 mmol/L (8-16); Aspartate Amino Transferase 25 U/L (15-37); Bilirubin,Total 0.5 mg/dL (0.00-1.00); Blood Urea Nitrogen 13 mg/dL (7-18); CRP 2.6 mg/dL (0.0-0.9); Calcium 8.1 mg/dL (8.5-10.1); Carbon Dioxide 23 mmol/L (21-32); Chloride 97 mmol/L (98-108); Estimated CRCL calculation 65 ml/min; Estimated Glomerular Filt Rate > 60; Glucose 114 mg/dL (70-99); Magnesium 2.2 mg/dL (1.8-2.4); Osmolality Calculated 275 mOsm/kg (285-295); Potassium 3.2 mmol/L (3.5-5.1); Sodium 132 mmol/L (136-145); Total Protein 6.9 g/dL (6.4-8.2)
[2020-10-15 06:06] LABS: INR 1.2; Prothrombin Time 12.9 Seconds (9.50-12.10)
--- NOTE | 2020-10-15 07:20 | PC.NURSE ---
Patient occasionally will begin to hack and cough, eventually spitting up a large amount of phlegm. He was encouraged to spit it up into an emesis bag, as he was initially spitting it over the side of the bed, onto the floor. At the end of the night, patient had spit up more than 300 mL of phlegm.
[2020-10-15 08:00] VITALS: BP 163/89; PULSE 73; PULSE 87; RESP 20; TEMP 37.1; O2SAT 93
[2020-10-15] MEDS: PANTOPRAZOLE SODIUM IV 40 MG VIAL IV PUSH (09:15)
[2020-10-15] MEDS: NICOTINE (*PBKC) 21 MG PATCH 1 PATCH TRANSDERM (09:31)
[2020-10-15] MEDS: ENOXAPARIN 30 MG/0.3 ML SYRINGE SUB-Q (09:32)
[2020-10-15] MEDS: DEXAMETHASONE SOD PHOS INJ 4 MG/ML VIAL 6 MG IV PUSH (09:33)
[2020-10-15] MEDS: REMDESIVIR 100 MG/NS 250 ML 100 MG/250 ML BAG 250 MG IVPB (11:31)
[2020-10-15] MEDS: SODIUM CHLORIDE 0.9% IV 1,000 ML 100 ML IV CONT (11:38)
[2020-10-15 12:00] VITALS: BP 140/50; PULSE 78; PULSE 82; RESP 16; TEMP 37.1; O2SAT 95
--- NOTE | 2020-10-15 12:11 | PC.NURSE ---
NG tube removed, tolerated well
--- NOTE | 2020-10-15 12:29 | PC.NURSE ---
Pitcher of water given, encouraged to take small sips, call if nauseated, patient gave thumbs up sign
--- NOTE | 2020-10-15 14:03 | PM.DS ---
DS: Admitting Diagnosis Discharge Date 10/13/2020 Admitting Diagnosis covid and ileus DS: Discharge Diagnosis Discharge Diagnosis (1) COVID-19: Code(s): U07.1 - COVID-19 Status: Acute Assessment and Plan: Patient in no obvious distress Patient states that he had not had the vaccination Continue dexamethasone and remdesivir D2 Blood gas respiratory alkalosis (2) Pneumonia: Qualifiers: Laterality: right Lung location: lower lobe of lung Pneumonia type: due to unspecified organism Qualified Code(s): J18.9 - Pneumonia, unspecified organism Code(s): J18.9 - Pneumonia, unspecified organism Status: Acute Assessment and Plan: Chest x-ray pneumonia CRP 4.6>2.6 improving Lactic acid within normal limit Continue azithromycin and Rocephin WBCs 6.7>11.1>12.4 patient is on dexamethasone Afebrile (3) Ileus: Code(s): K56.7 - Ileus, unspecified Status: Acute Assessment and Plan: According to the CT ileus versus enteritis Patient diet advanced tolerating continue Reglan Continue Zofran KUB indicates nonobstructive bowel gas pattern (4) Drug abuse: Code(s): F19.10 - Other psychoactive substance abuse, uncomplicated Status: Acute Assessment and Plan: Will educate on cessation when more alert Positive for amphetamine Patient requesting medication for withdrawal symptoms will send home with Librium and other medications to treat stomach cramps and abdominal discomfort (5) Electrolyte imbalance: Code(s): E87.8 - Other disorders of electrolyte and fluid balance, not elsewhere classified Status: Acute Assessment and Plan: Potassium 3.0 >3.2 and magnesium 1.7>2.2 Will replace with supplement DS: Summary Hospital Course Reason for hospitalization: Abdominal pain and nausea vomiting Hospital Course: this is a 70-year-old male that presented to emergency department with complaints of abdominal pain and nausea vomiting. Patient has a past medical history of substance abuse. Patient is a poor historian all information obtained from medical records. Patient also tested positive for Covid. Patient ileus has resolved, patient will discharge today with instructions on quarantine. Patient will also be given medications to treat his withdrawal symptoms as requested. Patient able to tolerate his meal he is more alert today than previously and agrees with discharge. The patient denies SOB, CP, palpitation, extremity numbness, lightheadedness, dizziness, constipation, diarrhea, chills, or fever. Time spent 60 minutes Time Spent with Patient Time attestation: Total time spent providing and/or coordinating discharge services: 60 minutes Exam Narrative: GENERAL: Lethargic poorly groomed frail elderly man in no apparent distress. HEAD: normocephalic, atraumatic. EYES: PERRL. Sclera clear/white. Vision is grossly intact. EARS: External ears normal, auditory canals clear and without drainage, TMs normal without perforation. Hearing grossly intact. NOSE: External nose normal with no obvious nasal discharge, nares without redness, no rhinorrhea. THROAT: Mucous membranes moist, posterior pharynx clear. NECK: Neck supple, non-tender without lymphadenopathy, masses or thyromegaly. CARDIOVASCULAR: Regular rate and rhythm without murmurs, gallops, or rubs. RESPIRATORY: Clear to auscultation. Breath sounds equal bilaterally. No wheezes, rales, or rhonchi. GASTROINTESTINAL: Abdomen soft, non-tender, nondistended. Bowel sounds are hypoactive. SKIN: warm, intact with no suspicious lesions or rash, good texture and turgor. NEURO: awake, alert, and oriented to person, place and time. There were no obvious focal neurologic abnormalities. Steady gait EXTREMITIES: Normal range of motion. No edema. No calf tenderness. Negative Homans sign bilaterally. BACK: Nontender without deformity or crepitance. No flank tenderness. DS: Data Data Compl
[2020-10-15] MEDS: chlordiazePOXIDE (*CRX) 10 MG CAPSULE PO (15:31)
--- NOTE | 2020-10-15 16:01 | PC.NURSE ---
both iv's taken out, pt given donated clothing to go home in, jessica called for ride and is coming to pick him up
== END 2020-10-15 16:15 | disposition home or self-care (01) | DRG 177 ==
LOC: CHSED 08:55 → CHS2ND 09:23
PROVIDERS: Nurse Practitioner; Admitting Provider Emergency Medicine; Emergency Provider Emergency Medicine; Visit Provider Emergency Medicine
DX: U07.1 COVID-19 (principal); J12.82 Pneumonia due to coronavirus disease 2019; K56.7 Ileus, unspecified; R10.9 Unspecified abdominal pain; F15.10 Other stimulant abuse, uncomplicated; F11.10 Opioid abuse, uncomplicated; F17.210 Nicotine dependence, cigarettes, uncomplicated; E87.8 Other disorders of electrolyte and fluid balance, not elsewhere classified; F19.10 Other psychoactive substance abuse, uncomplicated
CPT/HCPCS: 36415; 36600; 71045; 74018; 74177; 80053; 80307; 81001; 82805; 83605; 83690; 83735; 83880; 84484; 85025; 85027; 85610; 85730; 86140; 87040; 87426; 93005; 96361; 96372; 96374; 99285; A9270; C9113; C9803; J0456; J0696; J1100; J1650; J2060; J2270; J2405; J2550; J2765; J3475; J3480; J7030; Q9967